=== PATIENT | female | born 1970 | race Caucasian/White ===

== ENCOUNTER 2017-07-31 09:42 | Emergency (ER) | payer BC ==
[2017-07-31 10:58] VITALS: BP 106/72; PULSE 101; RESP 18; TEMP 98.4; O2SAT 96
[2017-07-31] MEDS ORDERED: Naproxen 500 MG TAB PO ONE (11:15)
[2017-07-31] MEDS: Naproxen 500 MG TAB PO STA ×2 (11:18→11:21)
--- NOTE | 2017-07-31 11:37 | ED PDOC ---
HPI: General Adult Time Seen by Provider: 07/31/17 10:22 Chief Complaint (Nursing): Flu-like Symptoms Chief Complaint (Provider): fever History Per: Patient History/Exam Limitations: no limitations Onset/Duration Of Symptoms: Days (2x) Current Symptoms Are (Timing): Still Present Additional History Per: Family () Additional Complaint(s): Annel Bernstein, a 46 year old female presents to the ED complaining of fever onset 2 days ago. Reports of associated symptoms of non-productive cough, pleuritic chest pain, and body aches. Her also has similar symptoms and is present with her in the ED. PMD: Saúl Ceja Past Medical History Reviewed: Historical Data, Nursing Documentation, Vital Signs Vital Signs: Last Vital Signs Temp 98.4 F 07/31/17 10:55 Pulse 101 H 07/31/17 10:55 Resp 18 07/31/17 10:55 BP 106/72 07/31/17 10:55 Pulse Ox 96 07/31/17 12:31 - Medical History PMH: Gastritis, Kidney Stones - Family History Family History: States: Unknown Family Hx - Social History Current smoker - smoking cessation education provided: No Ex-Smoker (has not smoked in the last 12 months): No Alcohol: None - Immunization History Hx Tetanus Toxoid Vaccination: Yes - Home Medications Home Medications: Ambulatory Orders Medication Instructions Recorded Oxycodone HCl/Acetaminophen 1 tab PO Q6H PRN #15 tab 09/29/14 [Percocet 325 mg-5 mg] Meclizine HCl [Meclizine HCl] 1 tab PO Q6 PRN #28 tab 03/14/15 Albuterol 0.083% [Albuterol 0.083% 3 ml IH Q6H PRN #30 neb 07/31/17 Inhal Maki (2.5 mg/3 ml) UD] Azithromycin [Zithromax Tri-Derek] 500 mg PO DAILY #3 tablet 07/31/17 Naproxen [Naprosyn] 500 mg PO BID PRN #15 tablet 07/31/17 Nebulizer [Compact Compressor 1 dev XX PRN PRN #1 dev 07/31/17 Nebulizer] - Allergies Allergies/Adverse Reactions: Allergies Allergy/AdvReac Type Severity Reaction Status Date / Time ciprofloxacin [From Cipro] Allergy SHORTNESS Verified 07/31/17 10:55 OF BREATH iodine Allergy RASH Verified 07/31/17 10:55 prednisone Allergy RASH Verified 07/31/17 10:55 Sulfa (Sulfonamide Allergy RASH Verified 07/31/17 10:55 Antibiotics) tramadol Allergy RASH Verified 07/31/17 10:55 Review of Systems ROS Statement: Except As Marked, All Systems Reviewed And Found Negative Constitutional: Positive for: Fever Cardiovascular: Positive for: Chest Pain (pleuritic chest pain) Respiratory: Negative for: Cough Musculoskeletal: Positive for: Other (body ache) Physical Exam - Reviewed Nursing Documentation Reviewed: Yes Vital Signs Reviewed: Yes - Physical Exam Appears: Positive for: Well, Non-toxic, No Acute Distress Head Exam: Positive for: ATRAUMATIC, NORMAL INSPECTION, NORMOCEPHALIC Skin: Positive for: Normal Color, Warm, Dry Eye Exam: Positive for: Normal appearance, EOMI, PERRL ENT: Positive for: Normal ENT Inspection Neck: Positive for: Normal, Painless ROM, Supple Cardiovascular/Chest: Positive for: Regular Rate, Rhythm, Other (tenderness on the midsternum) Respiratory: Positive for: Normal Breath Sounds. Negative for: Wheezing, Respiratory Distress Gastrointestinal/Abdominal: Positive for: Normal Exam, Bowel Sounds, Soft. Negative for: Tenderness Back: Positive for: Normal Inspection. Negative for: L CVA Tenderness, R CVA Tenderness Extremity: Positive for: Normal ROM. Negative for: Pedal Edema, Deformity Neurologic/Psych: Positive for: Alert, Oriented (x3), Gait - ECG O2 Sat by Pulse Oximetry: 96 (RA) Pulse Ox Interpretation: Normal Medical Decision Making Medical Decision Making: Time: 10:59 Impression:Flu-viral symptoms Initial Plan: --EKG --Chest X-ray --Urine --Naproxen 500mg --Influenza A B --Reevaluation Time:12:30 FINDINGS: LUNGS: No active pulmonary disease. PLEURA: No significant pleural effusion identified. No pneumothorax apparent. CARDIOVASCULAR: Normal. OSSEOUS STRUCTURES: No significant abnormalities. VISUALIZED UPPER ABDOMEN: Normal. OTHER FINDINGS: None. IMPRESSION: No active disease. Documented by Pam Anderson acting as a scribe for Astrid Rojas MD. All medical record entries made by the Scribe were at my direction and personally dictated by me. I have reviewed the chart and agree that the record accurately reflects my personal performance of the history, physical exam, medical decision making, and the department course for this patient. I have also personally directed, reviewed, and agree with the discharge instructions and disposition. Disposition - Clinical Impression Clinical Impression: URI (upper respiratory infection) - Disposition Referrals: Saúl Ceja MD [Family Provider] - Disposition: Routine/Home Disposition Time: 13:44 Condition: STABLE Prescriptions: Albuterol 0.083% [Albuterol 0.083% Inhal Maki (2.5 mg/3 ml) UD] 3 ml IH Q6H PRN # 30 neb PRN Reason: Shortness Of Breath Azithromycin [Zithromax Tri-Derek] 500 mg PO DAILY #3 tablet Naproxen [Naprosyn] 500 mg PO BID PRN #15 tablet PRN Reason: Pain, Moderate (4-7) Nebulizer [Compact Compressor Nebulizer] 1 dev XX PRN PRN #1 dev PRN Reason: Shortness Of Breath Instructions: Upper Respiratory Infection (ED) Forms: [employer] (Latvian) Print Language: KAZAKH
--- NOTE | 2017-07-31 12:22 | RAD ---
HISTORY: Cough COMPARISON: Chest radiograph dated 03/14/2015. TECHNIQUE: Chest PA and lateral FINDINGS: LUNGS: No active pulmonary disease. PLEURA: No significant pleural effusion identified. No pneumothorax apparent. CARDIOVASCULAR: Normal. OSSEOUS STRUCTURES: No significant abnormalities. VISUALIZED UPPER ABDOMEN: Normal. OTHER FINDINGS: None. IMPRESSION: No active disease.
--- NOTE | 2017-08-01 10:27 | CARD ---
APPROVED REPORT EKG Measurement Heart [id number] <Conclusion> Normal sinus rhythm Normal ECG
== END 2017-07-31 14:01 | disposition home or self-care (01) ==
LOC: H.ER 09:42
DX: J06.9 Acute upper respiratory infection, unspecified (principal); Z87.442 Personal history of urinary calculi; Z87.891 Personal history of nicotine dependence